=== PATIENT | female | born 1945 | race African-American/Black ===

== ENCOUNTER → 2018-12-13 | Outpatient (CLI) | payer OTHER, BC | LOC: RAD 10:50 | DX: M47.814 Spondylosis without myelopathy or radiculopathy, thoracic region (principal); R07.9 Chest pain, unspecified; M81.0 Age-related osteoporosis without current pathological fracture ==

== ENCOUNTER → 2019-08-17 | Outpatient (CLI) | payer OTHER, BC | LOC: ULTRA 10:00 | DX: N63.24 Unspecified lump in the left breast, lower inner quadrant (principal) ==

== ENCOUNTER 2019-09-10 23:26 | Inpatient (IN) | payer OTHER, BC ==
[~2019-09-10] VITALS: Ht 162.6 cm; Wt 91.6 kg
[2019-09-10 23:27] VITALS: BP 161/94
[2019-09-10] MEDS ORDERED: METFORMIN HCL500 M3 PO (23:45)
[2019-09-10] MEDS ORDERED: DYAZIDE 37.5-21 EACH PO (23:46)
[2019-09-10] MEDS ORDERED: SYMBICORT160 MCG/4. INH (23:48)
[2019-09-10] MEDS ORDERED: TAPAZOLE5 MG PO (23:48)
[2019-09-10] MEDS ORDERED: KAPSPARGO SPRIN50 MG PO (23:48)
[2019-09-10] MEDS ORDERED: SYSTANE COMPLET10 ML OPHTHALMIC (23:50)
[2019-09-10] MEDS ORDERED: LEVAQUIN 500 M500 M4 PO (23:51)
[2019-09-10] MEDS ORDERED: TRELEGY ELLIPT1 EACH INH (23:52)
[2019-09-11] VITALS (8 sets, daily range): BP systolic 123–163; BP diastolic 63–94
[2019-09-11 00:24] LABS: HEMATOCRIT 43.7 % (37.0-47.0); HEMOGLOBIN 14.9 gm/dL (12.0-15.0); MCHC 34.1 g/dL (28.0-37.0); MCV 79.2 fL (80.0-100.0); PLATELET COUNT 312 thou/uL (150-400); RBC 5.52 mil/uL (4.20-5.00); RDW 14.4 % (10.5-14.5); WBC 7.7 thou/uL (4.0-11.0)
[2019-09-11 00:29] LABS: ALBUMIN 3.1 g/dL (3.4-5.0); ANION GAP 9 mmol/L (7-16); BUN 11 mg/dL (7-18); CALCIUM 9.1 mg/dL (8.5-10.1); CHLORIDE 101 mmol/L (98-107); CO2 30 mmol/L (21-32); CREATININE 0.7 mg/dL (0.6-1.0); GLUCOSE 114 mg/dL (74-106); SGOT 15 U/L (15-37); SGPT 19 U/L (30-65); SODIUM 140 mmol/L (136-145); TOTAL BILIRUBIN 0.6 mg/dL (<0.1-1.0); TOTAL PROTEIN 7.6 g/dL (6.4-8.2); TROPONIN-I <0.06 ng/mL (<0.06)
[2019-09-11 00:32] LABS: APTT 34.1 Seconds (24.5-32.8); INR 1.1; PROTIME 11.3 Seconds (9.3-11.4)
[2019-09-11 00:49] LABS: HCO3 28.4 mmol/L (22.0-26.0); PCO2 46.1 mmHg (35.0-45.0); PO2 67.4 mmHg (80.0-100.0); pH 7.408 (7.360-7.450); sO2 93.5 % (92.0-98.0)
--- NOTE | 2019-09-11 01:02 | NUR ---
ED NURSE CALLED TO GIVE REPORT TO INPATIENT NURSE AND WAS TOLD SHE WILL HAVE TO RETURN THE PHONE CALL
[2019-09-11 01:08] LABS: ABSOLUTE NEUTROPHILS 2.6 thou/uL (1.4-8.2)
[2019-09-11 01:08] LABS: AMP/METHAMP Negative (Negative); BARBITURATES Negative (Negative); BENZODIAZEPINES Negative (Negative); COCAINE Negative (Negative); METHADONE Negative (Negative); OPIATES POSITIVE (Negative); PCP Negative (Negative)
[2019-09-11] MEDS ORDERED: PROAIR HFA8.5 GM INH (01:54)
[2019-09-11] MEDS ORDERED: BONIVA150 MG PO (01:55)
--- NOTE | 2019-09-11 04:26 | NUR ---
PT ARRIVED ON UNIT APPROXIMATELY 0100. PT VSS AND PT C/O PAIN UPON BREATHING. NO C/O N/V/D. PT ASSESSMENT CHARTED AND MED RECONCILED. PT HAD HOME MEDICATIONS THAT WERE SENT TO PHARMACY. ADMISSION COMPLETED. PT OXYGEN SATURATION DECREASED PLACED ON 2L AND LEVELS NORMAL. PT IS RESTING NOW AND WILL CONTINUE TO MONITOR PER POC.
[2019-09-11 06:47] LABS: ANION GAP 9 mmol/L (7-16); BUN 11 mg/dL (7-18); CALCIUM 8.9 mg/dL (8.5-10.1); CHLORIDE 101 mmol/L (98-107); CO2 25 mmol/L (21-32); CREATININE 0.9 mg/dL (0.6-1.0); GLUCOSE 330 mg/dL (74-106); SODIUM 135 mmol/L (136-145); TROPONIN-I <0.06 ng/mL (<0.06)
--- NOTE | 2019-09-11 08:53 | EKG ---
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
--- NOTE | 2019-09-11 19:47 | NUR ---
ASSUMED CARE AT SHIFT CHANGE, ASSESMENT CHARTED. VSS AND SR ON THE MONITR. PATIENT DENIES ANY CP OR DISCOMFORT. REMAINS ON IVF, AND SCHEDULED MEDS AND WILL CONTINUE WITH POC.
[2019-09-12 04:32] VITALS: BP 118/52
--- NOTE | 2019-09-12 05:04 | NUR ---
pt resting quietly in room up adlib in room, fluids infusing in L ac, vss, no c/o pain, pt states she thinks her breathing is better, will con't to monitor per ppoc.
[2019-09-12 07:40] VITALS: BP 116/53
[2019-09-12 11:25] VITALS: BP 131/69
[2019-09-12 14:31] LABS: TSH < 0.007 uIU/mL (0.358-3.740)
--- NOTE | 2019-09-12 15:56 | NUR ---
ASSUMED CARE AT SHIFT CHANGE, ALERT AND ORIENTED X4. SR/ST AND VSS. UP WALKING THE HALLWAYS. ON RA WITH SATS IN MID 90'S. DENIES ANY DISCOMFORT. HAS PERIODS OF COUGHS. PLAN TO DISCHARGE HOME TOMORROW.
[2019-09-12 16:25] VITALS: BP 138/79
[2019-09-12 19:08] VITALS: BP 148/69
[2019-09-13 04:15] VITALS: BP 131/59
--- NOTE | 2019-09-13 05:34 | NUR ---
ASSUMED PT CARE AT 1900. VSS. PT A&0X4, NO COMPLAINTS OF CHEST PAIN OR DISTRESS, ONLY WANTED AMBIEN FOR SLEEP. SLEPT THROUGH THE NIGHT, SHOULD D/C THIS AM.
[2019-09-13 07:27] VITALS: BP 136/62
--- NOTE | 2019-09-13 10:26 | NUR ---
AAOX4. ANXIOUS FOR DISCHARGE. SR PER TELE; ST WITH ACTIVITY. DENIES SOB, COUGH PERSISTS. DR. AVILES HERE, DISCHARGES PATIENT. WILL CONTINUE TO FOLLOW CLOSELY.
[2019-09-13 11:35] VITALS: BP 158/71
[2019-09-13] MEDS ORDERED: LEVAQUIN 500 M500 M5 PO (12:13)
[2019-09-13] MEDS ORDERED: MUCINEX600 MG PO (12:14)
[2019-09-13] MEDS ORDERED: PREDNISONE 10 M10 M1 PO (12:18)
[2019-09-13 13:57] VITALS: BP 158/71
== END 2019-09-13 14:45 | disposition home or self-care (01) | DRG 189 ==
LOC: ER 23:26 → 2N 09-11 00:48 → EROBS 09-11 00:48 → 2N 09-11 01:20 → ENTRNSPT 09-13 13:58 → EDTRNSPTSTS 09-13 14:21 → 2N 09-13 14:45
PROVIDERS: Emergency Medicine; ADMIT Hospitalist
DX: J96.21 Acute and chronic respiratory failure with hypoxia (principal); J44.1 Chronic obstructive pulmonary disease with (acute) exacerbation; F17.210 Nicotine dependence, cigarettes, uncomplicated; F12.90 Cannabis use, unspecified, uncomplicated; E11.9 Type 2 diabetes mellitus without complications; I10 Essential (primary) hypertension; E03.9 Hypothyroidism, unspecified; E87.6 Hypokalemia; E05.90 Thyrotoxicosis, unspecified without thyrotoxic crisis or storm; R53.81 Other malaise; M81.0 Age-related osteoporosis without current pathological fracture; Z88.5 Allergy status to narcotic agent; Z79.2 Long term (current) use of antibiotics; Z79.84 Long term (current) use of oral hypoglycemic drugs; Z79.899 Other long term (current) drug therapy
CPT/HCPCS: 10081

== ENCOUNTER 2019-09-30 19:42 | Emergency (ER) | payer OTHER, BC ==
[~2019-09-30] VITALS: Ht 162.6 cm; Wt 79.4 kg
[~2019-09-30 19:42] MED LIST: BONIVA150 MG PO; DYAZIDE 37.5-21 EACH PO; KAPSPARGO SPRIN50 MG PO; LEVAQUIN 500 M500 M4 PO; LEVAQUIN 500 M500 M5 PO; METFORMIN HCL500 M3 PO; MUCINEX600 MG PO; PREDNISONE 10 M10 M1 PO; PROAIR HFA8.5 GM INH; SYMBICORT160 MCG/4. INH; SYSTANE COMPLET10 ML OPHTHALMIC; TAPAZOLE5 MG PO; TRELEGY ELLIPT1 EACH INH
[2019-09-30 20:10] LABS: ABSOLUTE NEUTROPHILS 2.8 thou/uL (1.4-8.2); BASOPHILS 1.5 % (0.0-2.0); EOSINOPHILS 1.7 % (0.0-3.0); HEMOGLOBIN 14.6 gm/dL (12.0-15.0); LYMPHOCYTES 50.1 % (24.0-44.0); MCH 27.5 pg (26.0-34.0); MCHC 34.7 g/dL (28.0-37.0); MCV 79.3 fL (80.0-100.0); MONOCYTES 11.9 % (1.0-8.0); PLATELET COUNT 382 thou/uL (150-400); POLYS 34.8 % (36.0-66.0); RDW 15.2 % (10.5-14.5)
[2019-09-30 20:20] LABS: ANION GAP 10 mmol/L (7-16); BUN 11 mg/dL (7-18); CALCIUM 9.7 mg/dL (8.5-10.1); CHLORIDE 99 mmol/L (98-107); CO2 28 mmol/L (21-32); CREATININE 0.8 mg/dL (0.6-1.0); GLUCOSE 143 mg/dL (74-106); POTASSIUM 3.9 mmol/L (3.5-5.1); SODIUM 137 mmol/L (136-145)
[2019-09-30 20:29] LABS: TROPONIN-I <0.06 ng/mL (<0.06)
[2019-09-30] MEDS ORDERED: NAPROSYN500 MG PO (22:00)
[2019-09-30 22:09] VITALS: BP 107/55
--- NOTE | 2019-10-01 16:21 | EKG ---
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: STEPH : 1945 Requested By: Lobo Littlejohn Order Number: [id number] MD: Candido Canseco Measurements Intervals [place] Rate: 67 P: 69 IA: 140 QRS: 23 QRSD: 100 T: 56 QT: 419 QTc: 443 Interpretive Statements Sinus rhythm left atrial enlargement Early transition Compared to ECG 09/10/2019 23:32:01 Sinus tachycardia no longer present Electronically Signed On 10-01-2019 16:21:32 PROGRAMMER OR ANALYST by Candido Canseco [email or web address] <ELECTRONICALLY SIGNED> By: Candido Canseco MD 10/01/19 1621 1950 Catie Canseco MD /EPI
== END 2019-09-30 22:09 | disposition home or self-care (01) ==
LOC: ER 19:42
PROVIDERS: Emergency Medicine
DX: R07.89 Other chest pain (principal); I10 Essential (primary) hypertension; E11.9 Type 2 diabetes mellitus without complications; J44.9 Chronic obstructive pulmonary disease, unspecified; F17.210 Nicotine dependence, cigarettes, uncomplicated; Z88.6 Allergy status to analgesic agent

== ENCOUNTER → 2020-09-11 | Outpatient (CLI) | payer OTHER, BC ==
[~2020-09-11] MED LIST changes: +NAPROSYN500 MG PO
== END ==
LOC: BC 10:17
PROVIDERS: ATTEND Family Medicine
DX: Z12.31 Encounter for screening mammogram for malignant neoplasm of breast (principal)

== ENCOUNTER 2021-03-22 11:29 | Observation (INO) | payer OTHER, BC ==
[~2021-03-22] VITALS: Ht 162.6 cm; Wt 82.6 kg
[2021-03-22 11:30] VITALS: BP 170/87
[2021-03-22 11:57] LABS: ABSOLUTE NEUTROPHILS 6.2 thou/uL (1.4-8.2); BASOPHILS 0.8 % (0.0-2.0); EOSINOPHILS 0.2 % (0.0-3.0); HEMATOCRIT 43.1 % (37.0-47.0); HEMOGLOBIN 14.9 gm/dL (12.0-15.0); LYMPHOCYTES 25.7 % (24.0-44.0); MCH 27.5 pg (26.0-34.0); MCHC 34.6 g/dL (28.0-37.0); MCV 79.7 fL (80.0-100.0); MONOCYTES 11.5 % (1.0-8.0); PLATELET COUNT 345 thou/uL (150-400); POLYS 61.8 % (36.0-66.0); RBC 5.41 mil/uL (4.20-5.00); RDW 14.3 % (10.5-14.5)
[2021-03-22 12:19] LABS: ANION GAP 10 mmol/L (7-16); BUN 8 mg/dL (7-18); CALCIUM 9.5 mg/dL (8.5-10.1); CHLORIDE 103 mmol/L (98-107); CO2 27 mmol/L (21-32); CREATININE 0.6 mg/dL (0.6-1.0); GLUCOSE 137 mg/dL (74-106); POTASSIUM 3.8 mmol/L (3.5-5.1); SODIUM 140 mmol/L (136-145)
[2021-03-22 12:27] LABS: TROPONIN-I <0.06 ng/mL (<0.06)
[2021-03-22] MEDS ORDERED: BUPROPION XL300 MG PO (12:32)
[2021-03-22] MEDS ORDERED: AMBIEN 5 MG TABL5 M1 PO (12:33)
[2021-03-22] MEDS ORDERED: BROVANA15 MCG/2 M INH (12:34)
[2021-03-22 15:41] VITALS: BP 145/75
[2021-03-22 16:03] VITALS: BP 145/75
[2021-03-22 16:18] VITALS: BP 154/89
[2021-03-22 20:39] VITALS: BP 141/74
[2021-03-23 00:14] VITALS: BP 124/75
--- NOTE | 2021-03-23 04:21 | NUR ---
Patient making progress towards outcome goals. Vital signs and rhythm stable.Up to bathroom with some shortness of air, gets tachycardic but sats optimal on room air. Breahing treatment ans Kari Hunt helped control coughing. Cough still non productive.
[2021-03-23 04:23] VITALS: BP 132/81
[2021-03-23 05:13] LABS: HEMATOCRIT 40.3 % (37.0-47.0); HEMOGLOBIN 13.8 gm/dL (12.0-15.0); MCH 27.5 pg (26.0-34.0); MCHC 34.2 g/dL (28.0-37.0); MCV 80.4 fL (80.0-100.0); RBC 5.01 mil/uL (4.20-5.00); RDW 14.2 % (10.5-14.5); WBC 8.7 thou/uL (4.0-11.0)
[2021-03-23 05:53] LABS: ANION GAP 11 mmol/L (7-16); BUN 11 mg/dL (7-18); CALCIUM 8.8 mg/dL (8.5-10.1); CHLORIDE 103 mmol/L (98-107); CO2 28 mmol/L (21-32); CREATININE 0.7 mg/dL (0.6-1.0); GLUCOSE 141 mg/dL (74-106); POTASSIUM 3.6 mmol/L (3.5-5.1); SODIUM 142 mmol/L (136-145); TROPONIN-I <0.06 ng/mL (<0.06)
[2021-03-23 07:21] VITALS: BP 131/79
--- NOTE | 2021-03-23 11:35 | EKG ---
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
--- NOTE | 2021-03-23 11:36 | EKG ---
[address] [employer] [place] [address] ELECTROCARDIOGRAM REPORT Name: JOÃO BARCENAS Room #: 355-P ADM IN M.R.#: [id number] Admission: 03/22/21 Attend Phys: Ke Poole MD Discharge: Date of : 49 Report #: [id number] [facility] ED Test Date: 2021-03-22 Test Time: 15:28:33 Pat Name: JOÃO BARCENAS Department: Room: [facility] Gender: F Bolt Loader: renée : 1945 Requested By: Gustavo Santos Order Number: [id number] MD: Koko Quiroz Measurements Intervals [place] Rate: 101 P: 61 NV: 143 QRS: 6 QRSD: 93 T: 62 QT: 366 QTc: 475 Interpretive Statements Sinus tachycardia Probable left atrial enlargement Compared to ECG 03/22/2021 11:36:32 No significant changes Electronically Signed On 03-23-2021 11:36:28 CDT by Koko Quiroz [email or web address] <ELECTRONICALLY SIGNED> By: Koko Quiroz MD 03/23/21 1136 1528 1528 Koko Quiroz MD /NEAL
[2021-03-23 15:20] VITALS: BP 105/63
--- NOTE | 2021-03-23 17:59 | NUR ---
assumed care of pt at 0700. pt aox4 no acute distress. occasional chest pain with cough. diuresing well. vitals stable. echo/stress test tomorrow. possible d/c after.
[2021-03-23 19:04] VITALS: BP 115/64
[2021-03-24 03:29] VITALS: BP 121/67
--- NOTE | 2021-03-24 04:14 | NUR ---
Patient making progress towards outcome goals. Vital signs and rhythm stable. Short of breath with activity but oxygen saturation still optimal on room air. Good rib cage pain control with Hyrdocodone. Up adlib without difficulty. Echo for today. Cough still non productive.
[2021-03-24 05:47] LABS: HEMATOCRIT 41.2 % (37.0-47.0); HEMOGLOBIN 14.3 gm/dL (12.0-15.0); MCH 27.9 pg (26.0-34.0); MCHC 34.7 g/dL (28.0-37.0); MCV 80.5 fL (80.0-100.0); RBC 5.12 mil/uL (4.20-5.00); RDW 14.5 % (10.5-14.5); WBC 7.4 thou/uL (4.0-11.0)
[2021-03-24 06:00] LABS: CALCIUM 8.8 mg/dL (8.5-10.1); CREATININE 0.7 mg/dL (0.6-1.0); POTASSIUM 3.2 mmol/L (3.5-5.1)
[2021-03-24 07:45] VITALS: BP 106/55
--- NOTE | 2021-03-24 09:20 | NUR ---
ORDERS FOR EVAL AND TREAT. Pt IS UP AD ALYSSIA PER NURSING NOTES AND NURSING. SPOKE WITH Pt WHO STATES SHE IS NOT HAVING ANY DIFFICULTY WITH MOBILITY AND HOPING TO GO HOME TODAY. Pt DECLINING A FORMAL P.T. EVAL BUT SOUNDS LIKE SHE WOULD BE SAFE FOR HOME WHEN MEDICALLY CLEAR
--- NOTE | 2021-03-24 14:07 | 2DMMODE ---
[facility] [place] [address] 2 D/M-MODE ECHOCARDIOGRAM Name: JOÃO BARCENAS Room #: 355-P [facility] M.R.#: [id number] Admission: 03/22/21 Attend Phys: Ke Poole MD Discharge: Date of : 49 Report #: [id number] THIS REPORT FOR: cc: Santo Ceron James A. DO Park, Jin S. MD ~ APPROVED REPORT Study performed: 03/24/2021 13:15:51 EXAM: Comprehensive 2D, Doppler, and color-flow Echocardiogram Patient Location: Bedside Room #: [facility] Status: routine BSA: 1.88 HR: 86 bpm BP: 106/55 mmHg Rhythm: NSR Other Information Study Quality: Adequate Indications COPD Diabetes Dyspnea Chest Pain Hypertension/HDD 2D Dimensions RVDd: 35.85 mm IVSd: 8.88 (7-11mm) LVOT Diam: 19.78 (18-24mm) LVDd: 35.94 mm PWd: 9.03 (7-11mm) Ascending Ao: 26.48 (22-36mm) LVDs: 25.03 (25-40mm) Left Atrium: 37.23 (27-40mm) Aortic Root: 28.10 mm IVC: 16.00 mm Volumes Left Atrial Volume (Systole) Single Plane 4CH: 38.41 mL Single Plane 2CH: 42.79 mL LA ESV Index: 25.00 mL/m2 Aortic Valve [facility] [address] [place] [address] 2 D/M-MODE ECHOCARDIOGRAM Name: JOÃO BARCENAS Room #: 355-P ADM IN .R.#: [id number] Admission: 03/22/21 Attend Phys: Ke Poole MD Discharge: Date of : 49 Report #: [id number] AoV Peak Howard.: 1.63 m/s AO Peak Gr.: 10.61 mmHg LVOT Max P.20 mmHg LVOT Max V: 1.34 m/s SURINDER Vmax: 2.53 cm2 Mitral Valve E/A Ratio: 0.7 MV Decel. Time: 281.71 ms MV E Max Howard.: 1.01 m/s MV A Howard.: 1.36 m/s MV PHT: 81.70 ms IVRT: 133.79 ms Pulmonary Valve PV Peak Howard.: 1.26 m/s PV Peak Gr.: 6.31 mmHg Pulmonary Vein P Vein S: 0.49 m/s P Vein A: 0.32 m/s P Vein D: 0.30 m/s P Vein A Dur.: 120.0 msec P Vein S/D Ratio: 1.63 Tricuspid Valve TR Peak Howard.: 3.23 m/s TR Peak Gr.: 41.82 mmHg PA Pressure: 47.00 mmHg Left Ventricle The left ventricle is normal size. There is normal LV segmental wall motion. There is normal left ventricular wall thickness. The left ventricular systolic function is normal. The left ventricular ejection fraction is within the normal range. LVEF is 55-60%. Grade I - abnormal relaxation pattern. Right Ventricle The right ventricle is normal size. The right ventricular systolic function is normal. Atria The left atrium size is normal. The right atrium size is normal. Aortic Valve The aortic valve is normal in structure. No aortic regurgitation is present. There is no aortic valvular stenosis. Mitral Valve [facility] [employer] [place] [address] 2 D/M-MODE ECHOCARDIOGRAM Name: JOÃO BARCENAS Room #: 355-P ADM IN .R.#: [id number] Admission: 03/22/21 Attend Phys: Ke Poole MD Discharge: Date of : 49 Report #: [id number] The mitral valve is normal in structure. Trace mitral regurgitation. No evidence of mitral valve stenosis. Tricuspid Valve The tricuspid valve is normal in structure. There is mild tricuspid regurgitation. Estimated PAP 47 mmHg. There is moderate pulmonary hypertension. Pulmonic Valve The pulmonary valve is normal in structure. There is no pulmonic valvular regurgitation. Great Vessels The aortic root is normal in size. IVC is normal in size and collapses >50% with inspiration. Pericardium There is no pericardial effusion. <Conclusion> The left ventricle is normal size. There is normal left ventricular wall thickness. The left ventricular systolic function is normal. Grade I - abnormal relaxation pattern. The right ventricle is normal size. The left atrium size is normal. The aortic valve is normal in structure. Trace mitral regurgitation. There is mild tricuspid regurgitation. Estimated PAP 47 mmHg. <ELECTRONICALLY SIGNED> By: August Dodson MD 03/24/21 1407 140 140 August Dodson MD /INF
[2021-03-24 15:06] VITALS: BP 106/55
--- NOTE | 2021-03-24 16:15 | NUR ---
PT DISCHARGED TO HOME...WILL F/U CARDIO FOR OUTPATIENT STRESS TEST 04/08/21...
== END 2021-03-24 16:12 | disposition home or self-care (01) ==
LOC: ER 11:29 → EROBS 15:28 → 3W 15:28
PROVIDERS: Emergency Medicine; ADMIT Hospitalist; ATTEND Hospitalist
DX: J96.21 Acute and chronic respiratory failure with hypoxia (principal); I10 Essential (primary) hypertension; E11.9 Type 2 diabetes mellitus without complications; E05.90 Thyrotoxicosis, unspecified without thyrotoxic crisis or storm; R07.89 Other chest pain; J44.1 Chronic obstructive pulmonary disease with (acute) exacerbation; F17.210 Nicotine dependence, cigarettes, uncomplicated; F15.10 Other stimulant abuse, uncomplicated; Z79.899 Other long term (current) drug therapy
CPT/HCPCS: 10879

== ENCOUNTER → 2021-04-08 | Outpatient (CLI) | payer OTHER, BC ==
[~2021-04-08] MED LIST changes: +AMBIEN 5 MG TABL5 M1 PO; +BROVANA15 MCG/2 M INH; +BUPROPION XL300 MG PO
== END ==
LOC: SJCVCIMAG 08:10
PROVIDERS: ATTEND Internal Medicine
DX: R00.0 Tachycardia, unspecified (principal); R07.2 Precordial pain; J44.9 Chronic obstructive pulmonary disease, unspecified; E11.9 Type 2 diabetes mellitus without complications; I10 Essential (primary) hypertension; M81.0 Age-related osteoporosis without current pathological fracture; F17.200 Nicotine dependence, unspecified, uncomplicated; Z72.89 Other problems related to lifestyle; Z79.899 Other long term (current) drug therapy; Z88.5 Allergy status to narcotic agent

== ENCOUNTER → 2021-08-07 | Outpatient (CLI) | payer OTHER, BC ==
[~2021-08-07] MED LIST changes: +BUDESONIDE0.5 MG/2 M INH; +FLEXERIL PO; +GLUCOPHAGE XR750 MG PO; +METOPROLOL SUCC50 MG PO; +TESSALON PERLE100 MG PO; +WELLBUTRIN SR150 M1 PO
== END ==
LOC: LAB 12:02
PROVIDERS: ATTEND Student in an Organized Health Care Education/Training Program
DX: Z01.812 Encounter for preprocedural laboratory examination (principal); Z20.822 Contact with and (suspected) exposure to COVID-19

== ENCOUNTER → 2021-08-11 | Outpatient (CLI) | payer OTHER, BC ==
[~2021-08-11] VITALS: Ht 160 cm; Wt 81.2 kg
--- NOTE | 2021-08-13 11:08 | PATH ---
[facility] [place] [address] PATHOLOGY RPT PROCEDURE Name: TINY BARCENAS Room #: REG ERNESTO Monae.#: [id number] Admission: 08/11/21 Date of : 49 Discharge: Report #: [id number] Path Case #: [id number] [facility] Accession Number: [id number] . 01 Material submitted: . PART A: cecum - CECAL POLYP BIOPSY PART B: colon - ASCENDING COLON BIOPSY. Modifiers: ascending . 01 Clinical history: . COLONOSCOPY HX OF POLYPS DIVERTICULOSIS . 02 Diagnosis: A. Cecal polyp, biopsy: - Tubular adenoma. - Negative for high grade dysplasia or malignancy. . B. Ascending colon, biopsy: - Tubular adenoma. - Negative for high grade dysplasia or malignancy. . (ANK:miladis; 08/12/2021) QLM 08/12/2021 1404 Local . 02 Electronically signed: . Saundra Kam MD, Pathologist NPI- [id number] . 01 Gross description: . A. The specimen is received in formalin, labeled "Tiny Barcenas, cecal polyp". Received is a single segment of pale larose tissue measuring 0.3 cm in maximum dimensions. The specimen is submitted entirely in cassette A1. . B. The specimen is received in formalin, labeled "Tiny Barcenas, ascending colon". Received is a single segment of pale larose tissue measuring 0.3 cm in maximum dimensions. The specimen is submitted entirely in cassette B1. ([facility]; 08/11/2021) NRI/NRI 08/11/2021 2047 Local . 02 Pathologist provided ICD-10: D12.0, D12.2 . 02 CPT . 072724, 854073 Specimen Comment: A courtesy copy of this report has been sent to [phone] [address] PATHOLOGY RPT PROCEDURE Name: TINY BARCENAS Room #: REG CLI [facility]#: [id number] Admission: 08/11/21 Date of : 49 Discharge: Report #: [id number] Path Case #: [id number] Specimen Comment: [id number] Specimen Comment: Report sent to / DR LEBRON Specimen Comment: A duplicate report has been generated due to demographic updates. Performed at: 01 [facility] Sarika Dodson [address] [place] [address] [address], [place], [place] [id number] MD Juan Hui MD Phone: [phone] Performed at: [address] [id number] MD Rosie Martino MD Phone: [phone]
== END | disposition home or self-care (01) ==
LOC: GI 06:28
PROVIDERS: ATTEND Internal Medicine Gastroenterology
DX: Z12.11 Encounter for screening for malignant neoplasm of colon (principal); Z86.010 Personal history of colon polyps; D12.0 Benign neoplasm of cecum; D12.2 Benign neoplasm of ascending colon; K57.30 Diverticulosis of large intestine without perforation or abscess without bleeding; E11.9 Type 2 diabetes mellitus without complications; I11.0 Hypertensive heart disease with heart failure; I50.30 Unspecified diastolic (congestive) heart failure; J43.9 Emphysema, unspecified; E05.90 Thyrotoxicosis, unspecified without thyrotoxic crisis or storm; Z98.890 Other specified postprocedural states; Z79.899 Other long term (current) drug therapy; Z98.41 Cataract extraction status, right eye; Z98.42 Cataract extraction status, left eye; Z88.6 Allergy status to analgesic agent
CPT/HCPCS: 62110; 62900

== ENCOUNTER → 2021-10-02 | Outpatient (CLI) | payer OTHER, BC | LOC: BC 09:10 | PROVIDERS: ATTEND Family Medicine | DX: Z12.31 Encounter for screening mammogram for malignant neoplasm of breast (principal) ==

== ENCOUNTER → 2021-10-09 | Outpatient (CLI) | payer OTHER, BC | LOC: SJCVC 08:47 | PROVIDERS: ATTEND Internal Medicine | DX: R94.31 Abnormal electrocardiogram [ECG] [EKG] (principal); E78.00 Pure hypercholesterolemia, unspecified; R07.2 Precordial pain; F17.200 Nicotine dependence, unspecified, uncomplicated; E11.9 Type 2 diabetes mellitus without complications; I10 Essential (primary) hypertension; J44.9 Chronic obstructive pulmonary disease, unspecified; Z88.5 Allergy status to narcotic agent; Z72.89 Other problems related to lifestyle; Z79.899 Other long term (current) drug therapy; Z13.220 Encounter for screening for lipoid disorders; Z79.84 Long term (current) use of oral hypoglycemic drugs ==